=== PATIENT | female | born 1990 | race African-American/Black ===

== ENCOUNTER 2025-06-27 11:24 | Emergency (ER) | payer BC ==
[~2025-06-27] VITALS: Ht 162.6 cm; Wt 91.0 kg
[2025-06-27 11:38] VITALS: O2SAT 100
[2025-06-27] MEDS: PANTOPRAZOLE 40MG DR TABLET PO ONE (12:45)
[2025-06-27] MEDS: MAGNESIUM/ALUMINUM HYDROXIDE/SIMETHICONE 30ML UDC PO ONE (12:45)
[2025-06-27] MEDS: ACETAMINOPHEN 325MG TABLET PO ONE (12:45)
[2025-06-27 13:40] LABS: BASOPHILS % 1.0 % (0.0-2.0); EOSINOPHILS % 2.5 % (0.0-5.0); HEMATOCRIT. 39.1 % (36.0-48.0); HEMOGLOBIN. 12.8 g/dL (12.0-16.0); LYMPHOCYTES % 58.9 % (20.0-50.0); MEAN PLATELET VOLUME 8.3 fl (7.4-10.4); MONOCYTES % 6.2 % (2.0-8.0); NEUTROPHILS % 31.4 % (40.0-76.0); PLATELET 260 x1000/uL (130-400); RED BLOOD CELL COUNT 4.39 mill/uL (4.2-5.4); RED CELL DISTRIBUTION WIDTH 13.3 % (11.6-14.6)
[2025-06-27 13:50] LABS: HCG SCREEN NEGATIVE
[2025-06-27 13:55] LABS: CREATININE 0.8 mg/dL (0.6-1.0)
[2025-06-27 13:56] LABS: UREA NITROGEN BLOOD 9 mg/dL (9-23)
[2025-06-27 13:57] LABS: TROPONIN I HIGH SENSITIVITY 13 ng/L (3.0-34)
[2025-06-27] MEDS ORDERED: IBUP-1455 MT (15:26)
[2025-06-27 15:49] VITALS: BP 122/69; PULSE 75; RESP 16; TEMP 36.6; O2SAT 100
== END 2025-06-27 15:52 | disposition home or self-care (01) ==
LOC: ER 11:24
DX: R07.89 Other chest pain (principal); F12.90 Cannabis use, unspecified, uncomplicated; Z79.899 Other long term (current) drug therapy
CPT/HCPCS: 36415; 71045; 80048; 83880; 84484; 84703; 85025; 93005; 99285

== ENCOUNTER → 2025-08-20 | Outpatient (CLI) | payer BC ==
[~2025-08-20] MED LIST: IBUP-1455 MT
[2025-08-20 15:40] LABS: BASOPHILS % 0.6 % (0.0-2.0); EOSINOPHILS % 1.8 % (0.0-5.0); HEMATOCRIT. 37.9 % (36.0-48.0); HEMOGLOBIN. 12.3 g/dL (12.0-16.0); LYMPHOCYTES % 60.7 % (20.0-50.0); MEAN PLATELET VOLUME 8.0 fl (7.4-10.4); MONOCYTES % 5.3 % (2.0-8.0); NEUTROPHILS % 31.6 % (40.0-76.0); PLATELET 305 x1000/uL (130-400); RED BLOOD CELL COUNT 4.23 mill/uL (4.2-5.4); RED CELL DISTRIBUTION WIDTH 13.5 % (11.6-14.6)
[2025-08-20 15:43] LABS: CLARITY URINE CLEAR (CLEAR); COLOR URINE DARK YELLOW (YELLOW); GLUCOSE URINE NEGATIVE (NEGATIVE); KETONES URINE TRACE (NEGATIVE); LEUKOCYTE ESTERASE URINE NEGATIVE (NEGATIVE); NITRITE URINE NEGATIVE (NEGATIVE); OCCULT BLOOD URINE NEGATIVE (NEGATIVE); PH URINE 5.5 (4.5-8.0); PROTEIN URINE NEGATIVE (NEGATIVE); SPECIFIC GRAVITY URINE 1.031 (1.005-1.030); UROBILINOGEN URINE 1.0 E.U./dL (0.2-1.0)
[2025-08-20 15:57] LABS: FOLIC ACID (FOLATE) SERUM 18.81 ng/mL (>5.38)
[2025-08-20 16:58] LABS: ERYTHROCYTE SEDIMENTATION RATE 5 mm/hr (0-20)
[2025-08-20 16:59] LABS: CREATININE 0.8 mg/dL (0.6-1.0); TRIGLYCERIDE 103 mg/dL (0-150); UREA NITROGEN BLOOD 9 mg/dL (9-23)
[2025-08-20 17:00] LABS: LDL CHOLESTEROL 136 mg/dL (5-100)
[2025-08-20 17:01] LABS: ASPARTATE AMINOTRANSFERASE 19 IU/L (<34); BILIRUBIN TOTAL 0.4 mg/dL (0.1-1.0); PROTEIN TOTAL 7.2 g/dL (6.0-8.3)
[2025-08-20 17:03] LABS: T4 FREE 1.15 ng/dL (0.89-1.76)
== END | disposition home or self-care (01) ==
LOC: LAB 14:55
DX: E11.9 Type 2 diabetes mellitus without complications (principal); E55.9 Vitamin D deficiency, unspecified; D68.9 Coagulation defect, unspecified; E79.9 Disorder of purine and pyrimidine metabolism, unspecified; N39.0 Urinary tract infection, site not specified; B96.81 Helicobacter pylori [H. pylori] as the cause of diseases classified elsewhere; R94.6 Abnormal results of thyroid function studies; R94.5 Abnormal results of liver function studies; Z13.228 Encounter for screening for other metabolic disorders; Z79.899 Other long term (current) drug therapy
CPT/HCPCS: 36415; 80053; 80061; 80074; 81003; 82746; 83001; 83002; 83036; 83540; 83550; 84403; 84436; 84439; 84443; 84479; 84550; 85025; 85651